=== PATIENT | male | born 1970 | race Caucasian/White ===

== ENCOUNTER 2025-07-31 06:39 | Day surgery (SDC) | payer OTHER ==
[2025-07-30 09:05] VITALS: BMI 25.0
[2025-07-31] MEDS ORDERED: Lidocaine 1% PF 5 ML VIAL ONE (07:18)
[2025-07-31] MEDS ORDERED: PROPOFOL 40 ML ONE (07:18)
[2025-07-31] MEDS ORDERED: GLYCOPYRROLATE/PF 0.2 MG/ML VIAL ONE (07:28)
[2025-07-31] MEDS ORDERED: PHENYLEPHRINE-NS 100 MCG/ML 10 ML SYRINGE ONE (07:28)
[2025-07-31] MEDS ORDERED: PROPOFOL 20 ML ONE (08:30)
== END 2025-07-31 09:55 | disposition home or self-care (01) ==
LOC: SDC 06:39
PROVIDERS: ATTEND Internal Medicine
PROC: 0DJ08ZZ Inspection of Upper Intestinal Tract, Via Natural or Artificial Opening Endoscopic (ICD-10-PCS; principal; 2025-07-31)
PROC: 0DBH8ZZ Excision of Cecum, Via Natural or Artificial Opening Endoscopic (ICD-10-PCS; 2025-07-31)
PROC: 0DBL8ZZ Excision of Transverse Colon, Via Natural or Artificial Opening Endoscopic (ICD-10-PCS; 2025-07-31)
PROC: 0DBN8ZZ Excision of Sigmoid Colon, Via Natural or Artificial Opening Endoscopic (ICD-10-PCS; 2025-07-31)
PROC: 0DBP8ZZ Excision of Rectum, Via Natural or Artificial Opening Endoscopic (ICD-10-PCS; 2025-07-31)
DX: Z12.11 Encounter for screening for malignant neoplasm of colon (principal); D12.0 Benign neoplasm of cecum; D12.3 Benign neoplasm of transverse colon; D12.5 Benign neoplasm of sigmoid colon; D12.8 Benign neoplasm of rectum; K21.00 Gastro-esophageal reflux disease with esophagitis, without bleeding; K57.30 Diverticulosis of large intestine without perforation or abscess without bleeding; K64.8 Other hemorrhoids; R19.5 Other fecal abnormalities; Z80.0 Family history of malignant neoplasm of digestive organs
CPT/HCPCS: 43235; 45385; J2250; J2704; J3490; 88305